=== PATIENT | male | born 1980 | race Asian ===

== ENCOUNTER 2016-10-03 10:34 | Outpatient (CLI) | payer BC ==
--- NOTE | 2016-10-03 11:44 | XRay Report ---
LEFT FOOT, 3 views: History: Pain after fall. The bony architecture is intact. Bony alignment is normal. No soft tissue abnormalities are seen. The joint spaces appear preserved. IMPRESSION: Normal left foot.
--- NOTE | 2016-10-03 12:04 | XRay Report ---
LEFT ANKLE, 3 VIEWS: HISTORY: Pain after fall. FINDINGS: A subtle, nondisplaced avulsion fracture is suspected from the distal tip of the fibula. There is mild overlying soft tissue swelling. The distal tibia and talar dome are intact. No joint pathology. IMPRESSION: Avulsion injury from the distal tip of the fibula.
== END 2016-10-03 10:35 | disposition home or self-care (01) ==
LOC: XRAY 10:34
PROVIDERS: ATTEND Emergency Medicine
DX: S99.912A Unspecified injury of left ankle, initial encounter (principal); Z91.81 History of falling; X58.XXXA Exposure to other specified factors, initial encounter; Y93.89 Activity, other specified; Y92.89 Other specified places as the place of occurrence of the external cause; Y99.8 Other external cause status

== ENCOUNTER 2017-01-01 11:50 | Outpatient (CLI) | payer BC ==
[2017-01-01 12:10] LABS: Hematocrit 44.6 % (35.5-45.6); Hemoglobin 14.7 gm/dl (11.8-15.2); Mean Corpuscular HGB Conc 33 % (32-34); Mean Corpuscular Hemoglobin 30 pg (28-32); Mean Corpuscular Volume 91 fl (84-94); Platelet Count 266 K/mm3 (140-440); Red Cell Distribution Width 12.3 % (13.2-15.2); White Blood Count 7.4 K/mm3 (4.5-11.0)
[2017-01-01 12:43] LABS: Alanine Aminotransferase 70 units/L (7-56); Albumin 5.1 g/dL (3.9-5); Albumin/Globulin Ratio 1.7 %; Alkaline Phosphatase 79 units/L (35-129); Anion Gap 20 mmol/L; BUN/Creatinine Ratio 14.28; Blood Urea Nitrogen 10 mg/dL (9-20); Calcium 9.9 mg/dL (8.4-10.2); Carbon Dioxide 26 mmol/L (22-30); Chloride 98.8 mmol/L (98-107); Cholesterol 231 mg/dL (50-199); Glucose 86 mg/dL (75-100); HDL Cholesterol 85 mg/dL (40-59); LDL Cholesterol,Direct 105 mg/dL (50-130); Potassium 4.7 mmol/L (3.6-5.0); Sodium 140 mmol/L (137-145); Total Protein 8.1 g/dL (6.3-8.2); Triglycerides 209 mg/dL (2-149)
[2017-01-04 07:49] LABS: Vitamin D, 25-OH, Total 22 ng/mL (30-100)
== END 2017-01-01 11:51 | disposition home or self-care (01) ==
LOC: LAB 11:50
PROVIDERS: ATTEND Internal Medicine
DX: Z00.01 Encounter for general adult medical examination with abnormal findings (principal); E11.65 Type 2 diabetes mellitus with hyperglycemia; E78.2 Mixed hyperlipidemia; E55.9 Vitamin D deficiency, unspecified; R53.83 Other fatigue
CPT/HCPCS: 36415; 80053; 80061; 82306; 83036; 84443; 85027